=== PATIENT | male | born 1995 | race Caucasian/White ===

== ENCOUNTER → 2017-01-21 | Outpatient (CLI) | payer BC ==
[~2017-01-21] MED LIST: BUSPAR10 MG PO; MELATONIN1 M1 PO; SOMNICIN CAPSU1 EACH PO
== END | disposition disaster alternative care site (69) ==
LOC: GRAD 08:38
DX: M79.672 Pain in left foot (principal); G89.29 Other chronic pain; M87.875 Other osteonecrosis, left foot